=== PATIENT | female | born 1970 | race Two or more races ===

== ENCOUNTER 2020-03-25 14:39 | Outpatient (CLI) | payer MEDICAID ==
[~2020-03-25] VITALS: Ht 165.1 cm; Wt 92.5 kg
[2020-03-25 15:12] VITALS: BP 110/69
--- NOTE | 2020-03-25 16:44 | Consultation ---
DATE OF CONSULTATION: 03/25/2020 REFERRING PHYSICIAN: Genesis Bourgeois MD. CHIEF COMPLAINT: Screening colonoscopy evaluation. Also, the patient has been having chronic GERD and some episodes of rectal bleeding. PAST MEDICAL HISTORY: None. PAST SURGICAL HISTORY: None. MEDICATIONS: None. FAMILY HISTORY: Noncontributory. SOCIAL HISTORY: The patient denies any alcohol use. She used to smoke, but quit. No IV drug abuse. ALLERGIES: No known drug allergies. REVIEW OF SYSTEMS: Positive for chronic GERD and rectal bleeding. PHYSICAL EXAMINATION: VITAL SIGNS: Temperature 97.6, blood pressure 110/69, pulse 71, respirations 20. Height is 5 feet 5 inches. Weight is 204. HEENT: Normocephalic and atraumatic. Sclerae anicteric. NECK: Supple. No evidence of obvious lymphadenopathy. CARDIOVASCULAR: Regular rate and rhythm. Plus S1 and S2. LUNGS: Clear to auscultation bilaterally. ABDOMEN: Positive bowel sounds. Soft and nontender. No rebound. No guarding. No peritoneal sign. EXTREMITIES: No cyanosis, no clubbing, no edema. ASSESSMENT AND PLAN: The patient is a 50-year-old female with chronic GERD, also rectal bleeding. Given her age of 50, the patient needs a screening colonoscopy. We will schedule her for colonoscopy. Also given chronic GERD, we also going to schedule her for endoscopy. I want to thank, Dr. Genesis Bourgeois for this kind referral. Isma Dave M.D. DR: Rosibel JOB#: [id number] CC: Genesis Bourgeois M.D.; Fax#: [phone]
== END 2020-03-25 16:39 | disposition home or self-care (01) ==
LOC: PAN 14:39
DX: K21.9 Gastro-esophageal reflux disease without esophagitis (principal); K62.5 Hemorrhage of anus and rectum
CPT/HCPCS: G0463